=== PATIENT | female | born 1965 | race Caucasian/White ===

== ENCOUNTER → 2018-01-03 | Outpatient (CLI) | payer SELFPAY ==
--- NOTE | 2018-01-03 15:45 | Diagnostic Imaging Report ---
TECHNIQUE: Magnetic resonance imaging of the LEFT SHOULDER was performed WITHOUT injected contrast. HISTORY: Rotator cuff strain, limited range of motion, injury COMPARISON: None available. FINDINGS: MUSCLES AND TENDONS: Rotator Cuff: Tendons: Supraspinatus and Infraspinatus: Intact Teres Minor: Intact Subscapularis: Intact Muscles: No focal muscle atrophy. Biceps Tendon: The long head of the biceps tendon is intact and within the intertubercular groove. GLENOHUMERAL JOINT: Glenoid Labrum: Subtle linear signal at the posterosuperior labrum oriented away from the adjacent cartilage surface (series 3 image 14). Articular Cartilage: Low to intermediate grade erosion of the glenoid cartilage. Joint Fluid: No effusion. ACROMIOCLAVICULAR JOINT: Moderate hypertrophic degenerative changes of the acromioclavicular joint, results in mild mass effect on the supraspinatus myotendinous junction. Synovitis and trace effusion. BONE: The acromion is unremarkable. No focal or infiltrative bone marrow replacing abnormality. No acute fracture. SOFT TISSUES: The axillary recess of the glenohumeral joint capsule is thickened and edematous. IMPRESSION: 1. Sprain versus adhesive capsulitis involving the axillary recess of the glenohumeral joint. 2. 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 3. Subtle nondisplaced tear involving the posterosuperior labrum. Signed by: Dr. Gary Meléndez D.O., M.M.M. on 01/03/2018 3:41 PM
== END ==
LOC: MRI 14:38
PROVIDERS: ATTEND Internal Medicine
DX: M75.122 Complete rotator cuff tear or rupture of left shoulder, not specified as traumatic (principal)